=== PATIENT | female | born 1955 | race Caucasian/White ===

== ENCOUNTER 2016-07-19 19:57 | Inpatient (IN) | payer MEDICARE, OTHER ==
--- NOTE | ~2016-07-19 | DS ---
Discharge Summary [facility] [address] [place]. [address] NAME: ADAM MILES : 53 STATUS : DIS IN PAT#: [id number] AGE: 61 ADM/REG DATE : 07/19/16 MR#: [id number] REPORT SERV DATE: 07/23/16 DICTATED BY: CELESTINO BURT DATE: 07/22/16 REPORT STATUS : Draft TRANSCRIBED BY: TORIL DATE: 07/22/16 ADMISSION DATE: 07/19/2016 DISCHARGE DATE: 07/22/2016 DISCHARGE DIAGNOSES: 1. Right leg cellulitis. 2. Panniculitis. 3. Chronic kidney disease, stage 2 to 3. 4. Diabetes. 5. Morbid obesity with body mass index of 58. 6. History of cerebrovascular accident with right hemiplegia. 7. Obstructive sleep apnea, on CPAP. CONSULTANTS: None. PROCEDURES: None. HOSPITAL COURSE: This is a 61-year-old lady with history of morbid obesity, and stroke who was admitted to the hospital with right leg cellulitis as well as panniculitis. For details, please refer to excellent H and P by Dr. Lucas Alejandre. In summary, the patient was admitted and was appropriately treated with IV antibiotics for the cellulitis and panniculitis. The patient responded to therapy well and the antibiotic was deescalated to p.o. clindamycin on the third day of the hospital stay. The patient was also seen by Physical Therapy given her history of stroke with residual right-sided hemiplegia. Physical Therapy recommended the patient be discharged to a detention facility. As the patient's cellulitis and panniculitis improved, the patient was discharged to [facility] to continue rehab. Throughout the hospital stay, the patient remained hemodynamically stable with normal white blood cell count and no fevers. There were no other acute complications. DISPOSITION: To [facility]. DISCHARGE MEDICATIONS: Clindamycin 600 mg p.o. q.8 hours for additional three days along with probiotics, otherwise no medication changes. FOLLOWUP: Please follow up with PCP in the next one to two weeks. A total of 25 minutes spent in coordinating this patient's discharge today. DICTATED BY: MD LORI Núñez/DAVIE Discharge Summary [place] [id number] [place] [address] NAME: ADAM MILES : 53 STATUS : DIS IN PAT#: [id number] AGE: 61 ADM/REG DATE : 07/19/16 MR#: [id number] REPORT SERV DATE: 07/23/16 DICTATED BY: CELESTINO BURT DATE: 07/22/16 REPORT STATUS : Draft TRANSCRIBED BY: MODL DATE: 07/22/16 Celestino Burt MD / [id number] CC: MD David Núñez MD
--- NOTE | ~2016-07-19 | HP ---
History And Physical [place] [id number] [facility]. [address] NAME: ADAM MILES : 53 STATUS : ADM IN [facility]#: [id number] AGE: 61 ADM/REG DATE : 07/19/16 MR#: [id number] REPORT SERV DATE: 07/20/16 DICTATED BY: NAZANIN SINGLETON DATE: 07/19/16 REPORT STATUS : Draft TRANSCRIBED BY: MODL DATE: 07/19/16 DATE OF ADMISSION: 07/19/2016 CHIEF COMPLAINT: A 61-year-old female presenting with right leg cellulitis and pannus cellulitis. HISTORY OF PRESENTING ILLNESS: The patient's history was obtained through careful interview with the patient and brother coupled with review of [facility] medical records. The patient, about a week ago, began to have a rash develop over her right victor and leg, and also the pannus around her abdominal wall. She describes her right leg pain as a burning discomfort with itching and heat, an 8 to 9 out of 10 severity and her abdominal wall and pannus are also uncomfortable with a red, warmth, aching and burning quality pain, 8/10 severity. She has been having fevers and chills and taking Tylenol round the clock. She has had myalgias and arthralgias. She has chronic shortness of breath, on p.r.n. nasal cannula oxygen at home. No chest pain. She has had a very poor appetite with nausea, but no vomiting. She has also had itching and increased drainage underneath her breasts and for this reason, has been putting baby powder under them with some improvement in symptoms. REVIEW OF SYSTEMS: Otherwise, a 14-point review of systems was obtained and was negative. PAST MEDICAL HISTORY: 1. Stroke in 2010 with residual right-sided hemiplegia. 2. Diabetes, hemoglobin A1c of 6.9 in 02/2016. 3. Coronary artery disease, status post stent placement, followed by Dr. Styles. 4. Obstructive sleep apnea, on CPAP, followed by Dr. Parekh. 5. Chronic kidney disease stage 2 to stage 3, seen by Dr. Booker Marin with baseline creatinine about 1.2 to 1.3. 6. Gastroesophageal reflux disorder. 7. Depression. 8. Hypothyroidism. 9. COPD, on p.r.n. nasal cannula oxygen. 10.Hypertension. 11.Pulmonary hypertension. 12.Obesity with body mass index of 58. 13.Diverticulitis. 14.Diastolic congestive heart failure. 15.Gout. History And Physical [address] [address] NAME: ADAM MILES : 53 STATUS : ADM IN [facility]#: [id number] AGE: 61 ADM/REG DATE : 07/19/16 MR#: [id number] REPORT SERV DATE: 07/20/16 DICTATED BY: NAZANIN SINGLETON DATE: 07/19/16 REPORT STATUS : Draft TRANSCRIBED BY: DAVIE DATE: 07/19/16 PAST SURGICAL HISTORY: Denies any. ALLERGIES: SULFA. SOCIAL HISTORY: No tobacco abuse. No alcohol abuse. Lives with her daughter, who is also disabled. Has just one child. 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 She ambulates with a cane. She lives now in [place], [place] and is visited by wound care nurse. FAMILY HISTORY: Diabetes and heart disease. Sister and mother with stroke. Daughter with an amputated leg. CURRENT MEDICATIONS: Include albuterol, allopurinol 300 mg p.o. daily, Norvasc 10 mg p.o. daily, Plavix 75 mg p.o. daily, Lasix 40 mg p.o. daily, Amaryl 4 mg p.o. daily, Lantus 14 units subcutaneous in the morning and 8 units at night, sliding scale insulin, Synthroid 50 mcg p.o. daily, lisinopril 20 mg p.o. b.i.d., Mevacor 40 mg p.o. daily, Dulera two puffs inhaled twice a day, Paxil 30 mg p.o. daily, potassium 10 mEq p.o. daily. PHYSICAL EXAMINATION: VITAL SIGNS: Temperature 97.7, pulse 88, blood pressure 179/66, respiratory rate 22, O2 saturation 97% on room air. GENERAL: A pleasant, cooperative female, in no acute distress at this time. HEENT: Pupils equal, round, and reactive to light. No conjunctival pallor. No scleral icterus. Nares are patent. Oropharynx is clear of obstruction. Moist mucous membranes. NECK: Trachea midline. No thyromegaly. LYMPH: No cervical lymphadenopathy. No supraclavicular lymphadenopathy. RESPIRATORY: Clear to auscultation at bases. No wheezes, rales, or rhonchi. Normal respiratory effort. CARDIOVASCULAR: Regular rate and rhythm. No murmurs, rubs, or gallops. Chronic-appearing lower extremity edema that is symmetrical. ABDOMEN: Central pattern of morbid obesity. Nondistended, nontender. No hepatosplenomegaly can be appreciated. DERMATOLOGICAL: The patient's right victor area has an extensive area of heat, erythema, swelling, tenderness. No ulceration, no purulent drainage though. Also, over the pannus of the patient's abdominal wall, there is an extensive area of erythema, heat, swelling, and tenderness as well, but with no ulceration. No purulent drainage. Otherwise, warm and dry extremities. No pallor. No cyanosis. PSYCHIATRIC: Normal affect. Good mood. Alert and oriented x3. LABORATORY DATA: White blood cell count 8.2, hemoglobin 12, hematocrit 40, platelets 269. Sodium 140, potassium 3.8, chloride 105, bicarb 30, BUN 15, creatinine 0.23, glucose 174. Liver enzymes within normal limits. STUDIES: Chest x-ray by my own evaluation shows no acute cardiopulmonary process. ASSESSMENT AND PLAN: 1. Right leg cellulitis. Check blood cultures. Obtain a Wound Care consult. Place on IV History And Physical [address] [address] NAME: ADAM MILES : 53 STATUS : ADM IN [facility]#: [id number] AGE: 61 ADM/REG DATE : 07/19/16 MR#: [id number] REPORT SERV DATE: 07/20/16 DICTATED BY: NAZANIN SINGLETON DATE: 07/19/16 REPORT STATUS : Draft TRANSCRIBED BY: DAVIE DATE: 07/19/16 vancomycin. 2. Panniculitis. Obtain a Wound Care consult. Place on IV vancomycin. 3. Chronic kidney disease stage 2 to stage 3. 4. Diabetes. Hemoglobin A1c of 6.9, 02/2016. Continue basal insulin plus sliding scale insulin. 5. Morbid obesity. Body mass index of 58. 6. Late effects of stroke with right hemiplegia. 7. Obstructive sleep apnea. Continue CPAP. KPL/MODL Nazanin Singleton M.D. / [id number] CC: Lelia Kiran MD
[~2016-07-19 19:57] MED LIST: ACET500CAP PO; AMARYL4 PO; ASAB PO; COREG12 PO; DULERA 200 MCG/13 GM INH; HUMULIN N1 ML SC; KDUR10 PO; L40 PO; LEVEMFLXPN SC; MEVACOR40 MG PO; NORV10 PO; NOVOLOG SC; PAXIL30 MG PO; PLAVIX PO; PRIN20 PO; PROAIR HFA INH; PROVENTSOL INH; REFRESH PLUS0.5 % OPH; SYN.05 PO; Z300 PO; [UNRECOGNIZED DRUG - REMARK] PO
[2016-07-19 21:52] LABS: BASOPHILS 0.2 %; BASOPHILS ABSOLUTE 0.02 10/3/uL (0.0-0.16); EOSINOPHILS 2.8 %; EOSINOPHILS ABSOLUTE 0.23 10/3/uL (0.0-0.53); ER CBC TAT 0 Hrs 09 Mins; HEMATOCRIT 39.7 % (36.0-48.0); HEMOGLOBIN 12.5 g/dL (12.0-16.0); IMMATURE GRANULOCYTES 0.1 %; IMMATURE GRANULOCYTES ABSOLUTE 0.01 10/3/uL (0.0-0.11); LYMPHOCYTES 24.2 %; LYMPHOCYTES ABSOLUTE 1.98 10/3/uL (0.67-4.30); MEAN CORPUSCULAR HEMOGLOB 27.6 pg (26.0-34.0); MEAN PLATELET VOLUME 11.7 fL (9.2-13.0); MONOCYTES 7.8 %; MONOCYTES ABSOLUTE 0.64 10/3/uL (0.21-1.20); NEUTROPHILS 64.9 %; NEUTROPHILS ABSOLUTE 5.29 10/3/uL (2.02-8.40); PLATELET COUNT 269 10/3/uL (150-400); RBC DISTRIBUTION WIDTH 14.1 % (12.0-16.0); RED CELL COUNT 4.53 10/6/uL (4.0-5.6); WHITE BLOOD CELLS 8.2 10/3/uL (4.5-10.5)
[2016-07-19 21:53] LABS: MANUAL DIFF NO %; MEAN CORPUS HGB CONC 31.5 g/dL (32.0-36.0); MEAN CORPUSCULAR VOLUME 87.6 fL (80-100)
[2016-07-19 22:09] LABS: ALBUMIN 3.8 G/DL (3.5-5.0); ALKALINE PHOSPHATASE 101 U/L (45-117); CHLORIDE, SERUM 105 MMOL/L (96-112); CO2 (CARBON DIOXIDE) 30 MMOL/L (24-34); CREATININE 1.23 MG/DL (0.55-1.02); GFR AFRICAN AMERICAN 54 ML/MIN (>=60); GFR NON AFRICAN AMERICAN 47 ML/MIN (>=60); GLOBULIN 3.7 G/DL (2.5-4.1); POTASSIUM, SERUM 3.8 MMOL/L (3.5-5.3); SGOT(AST) 17 U/L (5-40); SGPT(ALT) 23 U/L (5-65); SODIUM, SERUM 140 MMOL/L (135-148); TOTAL BILIRUBIN 0.9 MG/DL (0-1.2); TOTAL PROTEIN 7.5 G/DL (6.0-8.5)
[2016-07-19 22:13] LABS: BUN (BLOOD UREA NITROGEN) 15 MG/DL (6-23); GLUCOSE, SERUM 174 MG/DL (60-99)
[2016-07-19] MEDS ORDERED: PAXIL30 MG PO (23:03)
[2016-07-19] MEDS ORDERED: PLAVIX PO (23:03)
[2016-07-19] MEDS ORDERED: HUMALOGPEN SC (23:04)
[2016-07-19] MEDS ORDERED: LANTUSCART SC ×2 (23:04)
[2016-07-19] MEDS ORDERED: NORV10 PO (23:05)
[2016-07-19] MEDS ORDERED: DULERA 200 MCG/13 GM INH (23:05)
[2016-07-19] MEDS ORDERED: AMARYL4 PO (23:06)
[2016-07-19] MEDS ORDERED: L40 PO (23:06)
[2016-07-19] MEDS ORDERED: PRIN20 PO (23:07)
[2016-07-19] MEDS ORDERED: MEVACOR40 MG PO (23:08)
[2016-07-19] MEDS ORDERED: KDUR10 PO (23:08)
[2016-07-19] MEDS ORDERED: Z300 PO (23:09)
[2016-07-19] MEDS ORDERED: SYN.05 PO (23:10)
[2016-07-19] MEDS ORDERED: *UNABLE1 (23:11)
[2016-07-19] MEDS ORDERED: PROAIR HFA INH (23:11)
[2016-07-20 05:54] LABS: BASOPHILS 0.1 %; BASOPHILS ABSOLUTE 0.01 10/3/uL (0.0-0.16); EOSINOPHILS 3.7 %; EOSINOPHILS ABSOLUTE 0.27 10/3/uL (0.0-0.53); HEMATOCRIT 37.8 % (36.0-48.0); HEMOGLOBIN 11.9 g/dL (12.0-16.0); IMMATURE GRANULOCYTES 0.1 %; IMMATURE GRANULOCYTES ABSOLUTE 0.01 10/3/uL (0.0-0.11); LYMPHOCYTES 26.6 %; LYMPHOCYTES ABSOLUTE 1.94 10/3/uL (0.67-4.30); MANUAL DIFF NO %; MEAN CORPUS HGB CONC 31.5 g/dL (32.0-36.0); MEAN CORPUSCULAR HEMOGLOB 27.9 pg (26.0-34.0); MEAN CORPUSCULAR VOLUME 88.7 fL (80-100); MEAN PLATELET VOLUME 11.7 fL (9.2-13.0); MONOCYTES 9.1 %; MONOCYTES ABSOLUTE 0.66 10/3/uL (0.21-1.20); NEUTROPHILS 60.4 %; PLATELET COUNT 244 10/3/uL (150-400); RED CELL COUNT 4.26 10/6/uL (4.0-5.6); WHITE BLOOD CELLS 7.3 10/3/uL (4.5-10.5)
[2016-07-20 06:02] LABS: INTERNATIONAL NORMAL RATI 1.2 UNITS (-); PARTIAL THROMBO TIME 26.5 SEC (22.5-37.2); PROTIME (NOT ORD) 15.3 SEC (12.0-14.5)
[2016-07-20 06:18] LABS: ALBUMIN 3.3 G/DL (3.5-5.0); B NATRIURETIC PEPTIDE (BNP) 213.2 PG/ML (< 100.0); BUN (BLOOD UREA NITROGEN) 12 MG/DL (6-23); CALCIUM, SERUM 9.6 MG/DL (8.5-10.4); CHLORIDE, SERUM 108 MMOL/L (96-112); CO2 (CARBON DIOXIDE) 29 MMOL/L (24-34); CREATININE 1.09 MG/DL (0.55-1.02); GFR AFRICAN AMERICAN 63 ML/MIN (>=60); GFR NON AFRICAN AMERICAN 54 ML/MIN (>=60); GLOBULIN 3.2 G/DL (2.5-4.1); GLUCOSE, SERUM 160 MG/DL (60-99); POTASSIUM, SERUM 3.5 MMOL/L (3.5-5.3); SGOT(AST) 18 U/L (5-40); SGPT(ALT) 20 U/L (5-65); SODIUM, SERUM 143 MMOL/L (135-148); TOTAL BILIRUBIN 0.8 MG/DL (0-1.2); TOTAL PROTEIN 6.5 G/DL (6.0-8.5); TROPONIN I 0.04 NG/ML (<0.05)
[2016-07-20 06:23] LABS: ALKALINE PHOSPHATASE 87 U/L (45-117)
[2016-07-20 08:04] LABS: GLYCOHEMOGLOBIN (HbA1c) 7.1 % (4.7-6.1)
[2016-07-20] MEDS ORDERED: COREG12 PO (09:58)
[2016-07-21 05:05] LABS: BUN (BLOOD UREA NITROGEN) 13 MG/DL (6-23); CALCIUM, SERUM 9.4 MG/DL (8.5-10.4); CHLORIDE, SERUM 107 MMOL/L (96-112); CO2 (CARBON DIOXIDE) 29 MMOL/L (24-34); CREATININE 1.06 MG/DL (0.55-1.02); GFR AFRICAN AMERICAN 65 ML/MIN (>=60); GFR NON AFRICAN AMERICAN 56 ML/MIN (>=60); PHOSPHORUS, SERUM 4.1 MG/DL (2.5-4.5); POTASSIUM, SERUM 3.6 MMOL/L (3.5-5.3); SODIUM, SERUM 141 MMOL/L (135-148)
[2016-07-21 05:06] LABS: BASOPHILS 0.3 %; BASOPHILS ABSOLUTE 0.02 10/3/uL (0.0-0.16); EOSINOPHILS ABSOLUTE 0.24 10/3/uL (0.0-0.53); HEMATOCRIT 39.1 % (36.0-48.0); HEMOGLOBIN 11.8 g/dL (12.0-16.0); IMMATURE GRANULOCYTES 0.2 %; IMMATURE GRANULOCYTES ABSOLUTE 0.01 10/3/uL (0.0-0.11); LYMPHOCYTES ABSOLUTE 1.99 10/3/uL (0.67-4.30); MEAN CORPUS HGB CONC 30.2 g/dL (32.0-36.0); MEAN CORPUSCULAR HEMOGLOB 27.1 pg (26.0-34.0); MEAN CORPUSCULAR VOLUME 89.9 fL (80-100); MEAN PLATELET VOLUME 12.1 fL (9.2-13.0); MONOCYTES 8.3 %; NEUTROPHILS 54.2 %; NEUTROPHILS ABSOLUTE 3.27 10/3/uL (2.02-8.40); PLATELET COUNT 241 10/3/uL (150-400); RED CELL COUNT 4.35 10/6/uL (4.0-5.6)
[2016-07-21 05:07] LABS: GLUCOSE, SERUM 122 MG/DL (60-99); MANUAL DIFF NO %
== END 2016-07-22 16:51 | DRG 603 ==
LOC: ER 19:57 → 6NO 23:06
PROVIDERS: Emergency Medicine; Hospitalist
DX: L03.115 Cellulitis of right lower limb (principal); E11.22 Type 2 diabetes mellitus with diabetic chronic kidney disease; I69.351 Hemiplegia and hemiparesis following cerebral infarction affecting right dominant side; I50.32 Chronic diastolic (congestive) heart failure; I13.0 Hypertensive heart and chronic kidney disease with heart failure and stage 1 through stage 4 chronic kidney disease, or unspecified chronic kidney disease; I25.10 Atherosclerotic heart disease of native coronary artery without angina pectoris; B37.2 Candidiasis of skin and nail; Z68.43 Body mass index [BMI] 50.0-59.9, adult; M79.3 Panniculitis, unspecified; N18.3 Chronic kidney disease, stage 3 (moderate); E66.01 Morbid (severe) obesity due to excess calories; F32.9 Major depressive disorder, single episode, unspecified; G47.33 Obstructive sleep apnea (adult) (pediatric); K21.9 Gastro-esophageal reflux disease without esophagitis; Z88.2 Allergy status to sulfonamides; Z79.02 Long term (current) use of antithrombotics/antiplatelets; Z95.5 Presence of coronary angioplasty implant and graft
CPT/HCPCS: 71010; 80048; 80053; 82962; 83036; 83735; 83880; 84100; 84443; 84484; 85025; 85610; 85730; 87040; 94640; 94660; 97116-GP; 97161-GP; 99285; A9270-GY; G8978-CK-GP; G8979-CJ-GP; J0360; J3370